=== PATIENT | male | born 1950 | race Two or more races ===

== ENCOUNTER → 2018-08-16 | Outpatient (CLI) | payer OTHER ==
--- NOTE | 2018-08-12 16:30 | NUR ---
SPOKE WITH PATIENT ON PHONE FOR PRE ADMISSION INTERVIEW. QUESTIONS AND CONCERNS ADDRESSED. PT HAS HX OF CHRONIC DVT RIGHT LEG. ON ELIQUIS 5MG BID. CALL TO DR ZELAYA GLOVE TURNER AND FORMER AT [facility] WHO GAVE MEDICAL CLEARANCE TO VERIFY WHEN TO HOLD ELIQUIS PRIOR TO SURGERY. DR HERNANDEZ TELETYPE MECHANIC. REVIEWED PT STATUS AND MEDICAL CLEARANCE INFORMATION BY DR ZELAYA WITH DR HERNANDEZ. ORDER TO HOLD ELIQUIS 5MG BID 2 DAYS PRIOR TO SURGERY AND OK TO TAKE OTHER MEDICATIONS ORDERED.
--- NOTE | 2018-08-12 17:00 | NUR ---
[facility] FAXED PREOP LAB RESULTS. REVIEWED CASE WITH DR SWEENEY ANESTHESIOLOGIST. REVIEWED ELIQUIS DOSE 5MG BID. VERIFIED FOR PT TO HOLD DOSE FOR 2 DAYS PRIOR TO SURGERY. OK TO TAKE OTHER MEDICATIONS MORNING OF SURGERY. SEE HOME MED LIST. TC TO PATIENT, MESSAGE LEFT TO RETURN CALL.
--- NOTE | 2018-08-12 17:40 | NUR ---
TC TO PATIENT. UPDATED WITH CONVERSATION WITH IT CONSULTANT DR HERNANDEZ AND DR SWEENEY ANESTHESIOLOGIST REGUARDING MEDICATIONS. TO HOLD ELIQUIS 5MG 2 DAYS PRIOR TO SURGERY. MAY TAKE BP MEDS AM OF SURGERY. PT VERBALIZED UNDERSTANDING.
[~2018-08-16] VITALS: Ht 167.6 cm; Wt 86.2 kg
== END | disposition home or self-care (01) ==
LOC: LB 07:35 → DU 08-17 10:30 → EDSTATUS 08-17 10:30
DX: M17.11 Unilateral primary osteoarthritis, right knee (principal)